=== PATIENT | female | born 1955 | race Caucasian/White ===

== ENCOUNTER 2021-11-14 12:42 | Outpatient (CLI) | payer OTHER, SELFPAY ==
--- OUTSIDE RECORDS SUMMARY | 2021-10-19 08:37 | XMS_ITS | Continuity of Care Document ---
:1955 Author Care Team Providers Name Role Phone MD Laxmi A Attending Physician MD Laxmi A Primary Care Physician Health Concerns Concerns Review problems and other documentation throughout for health concerns. Allergies, Adverse Reactions, Alerts Allergen Type Severity Reaction Last Updated Verified Status NSAIDs Allergy Moderate had a gastric October 11 Activ e bypass 2021 Social History Smoking Status Status Start Date End Date Date of Observat ion Never smoked tobacco October 15, 2021 9:46am (finding) Additional Data Assigned Sex Female Problems Active Problems Medical Problem Onset Date Status Fibromyalgia September 05, 2009 Active Major depression September 05, 2009 Active Morbid obesity September 05, 2009 Resolved Gastroesophageal reflux September 05, 2009 Active Osteoarthritis September 05, 2009 Active 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, 2009 Resolved Binge eating September 05, 2009 Resolved Restless legs syndrome September 05, 2009 Active Ulnar neuropathy April 09, 2010 Resolved Bladder dysfunction September 26, 2010 Active Actinic keratosis Active Sessile colonic polyp Active Dystonia Active Skin lesion Active Anal fissure Active Ankle fracture, left Active Encounter for Medicare annual Active wellness exam Anxiety Active Medial meniscus tear September 05, 2009 Resolved Trigger thumb September 05, 2009 Resolved History of foot surgery September 05, 2009 Resolved Previous section September 05, 2009 Resolved History of hysterectomy September 05, 2009 Resolved History of cholecystectomy September 05, 2009 Resolved H/O gastric bypass November 21, 2009 Active History of colonoscopy Active Medications Medication Status Dose Units Route Directions Qty Days Start End Ins tructions Date Date Buspirone Active 15 MG PO Twice A Day 180 Februar Hcl y 2021 4:24pm Calcium Active 1000 MG PO Daily Carbonate Carbamazepin Active 200 MG PO As Directed June take 1.5 tabs e 7th, two times a 2021 day 11:42am Cholecalcife Active 1000 UNIT OR Daily rol (Vitamin D3) 1,000 Unit TAB Cyanocobalam Active 1000 MCG IM Every 30 28 June in (Vitamin Days 15, B 12) 1 000 2021 INJ 10:29am Docusate Active 100 MG PO Twice A Day Sodium Doxycycline Active 200 MG PO Once 2 September Monohydrate 2021 9:54am Duloxetine Active 120 MG PO Daily 180 Novembe Hcl r , (Cymbalta) 2020 60 Mg CAP 10:59am Ferrous Active 325 MG PO Daily 90 Februar Sulfate y , (Iron 2019 (Ferrous 9:17am Sulfate)) 325 Mg TAB Lidocaine Active 4 % TOP Twice A Day Patch as needed Lorazepam Active 0.5 MG PO Three Times 30 Decembe (Ativan) 0.5 A Day as r , Mg TAB needed 2020 8:48am Multiple Active 1 EA PO Daily Vitamin (Multi-Vitam in) TAB Pramipexole Active 0.5 MG PO Bedtime January Dihydrochlor , radha 2020 10:30am Trazodone Active 1-2 TAB PO Bedtime as 180 Februar Hcl needed y 2021 12:39pm 0.4% Disconti 1 JANET ND Twice A Day July Appl y pea Intra-Anal nued , ramona sized mariangel unt Oint 2019 07, intra-anally 3:47pm 2019 twice daily. 3:38pm Acetaminophe Disconti 1 - 2 TAB PO Daily n/Codeine nued er er Phosphate , (Acetaminoph 2008 2008 en/Codeine#3 3:13pm 1:25pm ) 30 Mg/300 Mg TAB Acetaminophe Disconti 1 - 2 TAB PO Daily November n/Codeine nued , ramona Phosphate 2008, (Acetaminoph 10:56am 2008 en/Codeine#3 3:13pm ) 30 Mg/300 Mg TAB Acetaminophe Disconti 1 - 2 TAB PO Daily October n/Codeine nued , , Phosphate 2008 2008 (Acetaminoph 11:51am 10:56a en/Codeine#3 m ) 30 Mg/300 Mg TAB Acetaminophe Disconti 1 - 2 TAB PO Daily 45 September n/Codeine nued , 13, Phosphate 2008 2008 (Acetaminoph 3:34pm 11:51a en/Codeine#3 m ) 30 Mg/300 Mg TAB Acetaminophe Disconti 1 - 2 TAB PO Daily 10 October n/Codeine nued , Phosphate 2008 (Acetaminoph 3:34pm en/Codeine#3 ) 30 Mg/300 Mg TAB Albuterol Disconti 2 PUFF INH Four Times 26 September Decemb (Ventolin nued Daily , er Hfa) 90 Mcg 2010, DOSE 2:45pm 2010 8:54am Amitriptylin Disconti 100 MG PO Daily 80 Sept Novemb e Hcl nued er er 2008 11:54am 1:25pm Amitriptylin Disconti 50 MG PO Bedtime Sept e Hcl nued ramona 2008 11:54a m Amoxicillin Disconti 875 MG PO Twice A Day November mb nued , er 2017, 10:38am 2017 9:14am Amoxicillin Disconti 1 TABLET PO Twice Daily 15 August Dece mb & Pot nued For 10 Days , er Clavulanate 2014, (Augmentin) 10:08am 2014 875 Mg/125 8:02am Mg TAB Azithromycin Disconti 250 MG PO As Directed 01 December Sep tem 2 TABS ON DAY (Zithromax nued , ramona ONE THEN 1 Z-Lanie) 250 2016, TAB DAILY Mg TAB 9:59am 2016 DAYS 2-5 12:55p m Azithromycin Disconti 0 PO Daily September TAKE 2 TABLETS TOGETHER TODAY, THEN 1 TABLET ONCE DAILY FOR 4 MORE (Zithromax) nued , , DAYS 250 Mg TAB 2010 2010 10:48am 2:24pm B-Complex Disconti 1 EA PO Decemb Vitamins (B nued er Complex) CAP 2014 8:02am Biotin Disconti 5000 MCG PO Daily Decemb nued er 2013 9:04am Buspirone Disconti 15 MG PO Twice A Day 60 Februar Febru a Hcl nued y , ry 2021, 10:42am 2021 4:24pm Buspirone Disconti 7.5 MG PO Twice A Day 60 Novembe Febru a Hcl nued r , ry 2020 17, 10:59am 2021 4:03pm Buspirone Disconti 15 MG PO Twice A Day 60 Decembe Febru a Hcl nued r , ry 2020 14, 8:47am 2021 10:42a m Calcium/Blanca Disconti 1 EA PO Daily October D nued 2015 2:50pm Carbamazepin Disconti 200 MG PO As Directed [facility] take 1.5 tabs e nued er 9, 7th, two times a 2020 2021 day 1:36pm 11:42a m Carbamazepin Disconti 300 MG PO Twice A Day June em take 1.5 tabs e nued 11th, ramona two times a 2020 12, day 12:44pm 2020 1:36pm Carbamazepin Disconti 300 MG PO Twice A Day June h final dose e nued 9th, 11th, 300 mg by 2020 2020 mouth twice 1:15pm 12:44p daily m Carbamazepin Disconti 300 MG PO Twice A Day April Ma [facility] final dose e nued 4th, 9th, 300 mg by 2020 2020 mouth twice 6:43pm 1:15pm daily Carbamazepin Disconti 300 MG PO Twice A Day October ar final dose e nued 13th, y 4th, 300 mg by 2019 2020 mouth twice 2:02pm 6:43pm daily Carbamazepin Disconti 300 MG PO Twice A Day June final dose e nued 16th, 13th, 300 mg by 2019 2019 mouth twice 2:37pm 2:02pm daily Carbamazepin Disconti 300 MG PO Twice A Day April Ma [facility] final dose e nued 27th, 16th, 300 mg by 2019 2019 mouth twice 11:23am 2:37pm daily Carbamazepin Disconti 300 MG PO Twice A Day November uar increase by 100 mg a day for 1 week, final dose 300 mg po e nued 6th, y bid 2018, 4:57pm 2019 11:23a m Carbamazepin Disconti 300 MG PO Twice A Day November ust increase by 100 mg a day for 1 week, final dose 300 mg po e nued , , bid 2018 2018 3:24pm 4:57pm Carbamazepin Disconti 300 MG PO Twice A Day 180 November ust increase by 100 mg a day for 1 week, final dose 300 mg po e nued , , bid 2018 2018 3:07pm 3:24pm Carbamazepin Disconti 200 MG PO Twice A Day [address] e nued 2018 9:31am 3:07pm Carbamazepin Disconti 200 MG PO Twice A Day 120 September e nued 2017 11:35am 9:31am Carbamazepin Disconti 200 MG PO Twice A Day 60 September e nued 2017 11:35a m Carisoprodol Disconti 350 MG PO Three Times September (Soma) 350 nued A Day , TAB 2008 9:29am Cholecalcife Disconti 1000 UNIT PO Twice A Day 24 November rol (Vitamin nued , D) 2015 Unit TAB 2:50pm Cyanocobalam Disconti 1000 MCG IM Every 30 3 June in (Vitamin nued Days r 4th, 15th, B 12) 2020 INJ 2:45pm 10:29a m Cyanocobalam Disconti 1000 MCG IM Every 30 3 Februar Novem b in (Vitamin nued Days y , er B 12) 2020 4th, INJ 4:01pm 2020 2:45pm Cyanocobalam Disconti 1000 MCG IM Every 30 3 Februar Febru a in (Vitamin nued Days y , ry B 12) 2019 8th, INJ 9:17am 2020 4:01pm Cyanocobalam Disconti 1000 MCG IM Every 30 3 August Februa in (Vitamin nued Days 9, ry B 12) 2018, INJ 2:52pm 2019 9:17am Cyanocobalam Disconti 1000 MCG IM Every 30 3 September in (Vitamin nued Days 25th, 9th, B 12) 2017 INJ 11:35am 2:52pm Cyanocobalam Disconti 1000 MCG IM Every 30 June in (Vitamin nued Days 26, 25th, B 12) 2017 INJ 4:10pm 11:35a m Cyanocobalam Disconti 1000 MCG IM Every 30 12 Decembjune in (Vitamin nued Days r , , B 12) 1 2015 INJ 10:24am 4:10pm Cyanocobalam Disconti 1000 MCG IM Once 30 April Dece in (Vitamin nued 16, er B-12) 1,000 2012, Mcg INJ 10:20am 2015 10:24a m Cyanocobalam Disconti 1000 MCG IM Once April in (Vitamin nued 16, , B-12) 1,000 2012 2013 Mcg INJ 9:28am 9:56am Cyclobenzapr Disconti 10 MG PO Bedtime as Nov ust ine Hcl nued needed r 2015 10:24am 9:47am Cyclobenzapr Disconti 10 MG PO Bedtime as Decem b ine Hcl nued needed er 2015 10:24a m Cyclobenzapr Disconti 5 MG PO Three Times July ine Hcl nued A Day as , needed 2013 2013 10:12am 9:55am Cyclobenzapr Disconti 5 MG PO Three Times 25 August Apri l ine Hcl nued A Day as , needed 2013 2013 10:36am 10:12a m Diazepam Disconti 2 MG PO Once November take t wo tablets, 20-30 minutes prior to procedure. YOU MUST HAVE (Valium) 2 nued , [employer] AF TER TAKING THIS MEDICATION. Mg TAB 2008 2008 4:58pm 8:53am Diltiazem Disconti 2 % TOP Three Times June nued A Day as , , needed 2021 2021 5:20pm 12:13a m Diltiazem Disconti 2 % TOP Three Times Julyem Gel nued A Day 2019, 10:29am 2019 9:24am Diltiazem Disconti 60 GRAMS RE Three Times Septjuly Ointment nued A Day er , 2019 9:24am 3:14pm Diphtheria/T Disconti 0.5 ML IM Once August etanus/Acell nued , Pertussis 2009 2009 (Adacel) 0.5 10:54am 10:58a Ml INJ m Docusate Disconti 100 MG PO Daily October nued , (Colace) 100 2010 Mg TAB 10:28a m Doxepin Hcl Disconti 20 MG PO Bedtime November nu2008 8:21am Duloxetine Disconti 120 MG PO Daily 60 Novembe Novemb Hcl nued r 8th, er (Cymbalta) 2020 12th, 60 Mg CAP 11:11am 2020 10:59a m Duloxetine Disconti 120 MG PO Daily 180 Februar Novemb Hcl nued y , er (Cymbalta) 2020 8th, 60 Mg CAP 4:01pm 2020 11:11a m Duloxetine Disconti 120 MG PO Daily 180 Februar Februa Hcl nued y , ry (Cymbalta) 2019 8th, 60 Mg CAP 9:17am 2020 4:01pm Duloxetine Disconti 120 MG PO Daily 180 August Februa Hcl nued , ry (Cymbalta) 2018, 60 Mg CAP 2:52pm 2019 9:17am Duloxetine Disconti 120 MG PO Daily 180 September Hcl nued , , (Cymbalta) 2017 2018 60 Mg CAP 11:35am 2:52pm Duloxetine Disconti 120 MG PO Daily 180 June Hcl nued , , (Cymbalta) 2017 2017 60 Mg CAP 1:43pm 11:35a m Duloxetine Disconti 120 MG PO Daily 180 Decembe June Hcl nued r , (Cymbalta) 2015 2017 60 Mg CAP 10:24am 1:43pm Duloxetine Disconti 120 MG PO Daily 180 Decembe Decemb Hcl nued r , er (Cymbalta) 2015, 60 Mg CAP 1:43pm 2015 10:24a m Duloxetine Disconti 120 MG PO Daily 180 Decembe Decemb Hcl nued r 14, er (Cymbalta) 2014 09, 60 Mg CAP 8:37am 2015 1:43pm Duloxetine Disconti 120 MG PO Daily 180 April Decemb Hcl nued , er (Cymbalta) 2014 14, 60 Mg CAP 9:42am 2014 8:37am Duloxetine Disconti 120 MG PO Daily 180 Januaryuar Hcl nued , y (Cymbalta) 2013 28, 60 Mg CAP 1:23pm 2014 9:42am Duloxetine Disconti 120 MG PO Daily 180 April Octobe Hcl nued , r (Cymbalta) 2013, 60 Mg CAP 4:12pm 2013 1:23pm Duloxetine Disconti 120 MG PO Daily 180 mbe Apruar Hcl nued r , y (Cymbalta) 2012, 60 Mg CAP 10:19am 2013 4:12pm Duloxetine Disconti 120 MG PO Daily 60 January Decemb Hcl nued 16, er (Cymbalta) 2012 3rd, 60 Mg CAP 4:55pm 2012 10:19a m Duloxetine Disconti 120 MG PO Daily 180 Aprilobe Hcl nued , r (Cymbalta) 2012 16, 60 Mg CAP 8:33am 2012 4:55pm Duloxetine Disconti 120 MG PO Daily 180 Januaryuar Hcl nued , y (Cymbalta) 2012 01, 60 Mg CAP 6:45pm 2012 8:33am Duloxetine Disconti 120 MG PO Daily Augustobe Hcl nued , r (Cymbalta) 2011, 60 Mg CAP 3:05pm 2011 6:45pm Duloxetine Disconti 120 MG PO Daily July Hcl nued 16, , (Cymbalta) 2011 2011 60 Mg CAP 6:37pm 3:05pm Duloxetine Disconti 120 MG PO Daily 60 June Hcl nued , , (Cymbalta) 2010 2011 60 Mg CAP 11:30am 6:37pm Duloxetine Disconti 120 MG PO Daily 90 June Hcl nued r , , (Cymbalta) 2008 2010 60 Mg CAP 11:39am 11:30a m Duloxetine Disconti 120 MG PO Daily 30 Novemb Hcl nued r 17, er (Cymbalta) 2008 30, 60 Mg CAP 9:39am 2008 11:39a m Duloxetine Disconti 60 MG PO Daily 30 Novemb Hcl nued er er (Cymbalta) , , 60 Mg CAP 2008 2008 11:54am 9:39am Duloxetine Disconti 60 MG PO Daily October Hcl nued , (Cymbalta) 2008, 60 Mg CAP 11:51am 2008 11:54a m Duloxetine Disconti 30 MG PO Daily September Hcl nued , , (Cymbalta) 2008 2008 30 Mg CAP 10:09am 10:23a m Esomeprazole Disconti 40 MG PO Daily July (Nexium) 40 nued r , , Mg CAP 2008 2009 11:39am 1:55pm Esomeprazole Disconti 40 MG PO Daily (Nexium) 40 nued er Mg CAP 2008 11:39a m Ferrous Disconti 325 MG PO Daily Augustua Sulfate nued (Iron 2018, (Ferrous 2:52pm 2020 Sulfate)) 9:17am 325 Mg TAB Ferrous Disconti 325 MG PO Daily July Sulfate nued , , (Iron 2017 2018 (Ferrous 2:39pm 2:52pm Sulfate)) 325 Mg TAB Ferrous Disconti 325 MG PO Daily July Sulfate nued , (Iron 2017 (Ferrous 2:39pm Sulfate)) 325 Mg TAB Fish Oil Disconti 1000 MG PO Daily October nued 2009 10:28a m Fluconazole Disconti 150 MG PO Once August REPEAT IN nued r , , 3 DAYS 2008 2009 1:57pm 10:07a m Fluoxetine Disconti 1 CAPSULE PO Daily October once daily. Hcl nued 2008 10:23a m Fluoxetine Disconti 60 MG PO Daily September Hcl nued 2008 2:36pm Fluticasone Disconti 2 SPRAY EACH Daily November aft er 1 month Propionate nued NOSTR , er august decre ase (Fluticasone 2011, to 1 sp ray Propionate 11:47am 2011 daily (Nasal)) 50 9:16am Mcg/1 [place] INH Gabapentin Disconti 600 MG PO Three Times Novemb nued A Day er 2008 1:25pm Guaifenesin/ Disconti 1-2 TSP PO Every 4 July Decemb P RN FOR COUGH Codeine nued Hours as , er Phosphate needed 2014, (Guaifenesin 10:08am 2015 -Codeine) 8:02am 100 Mg/10 Mg/5 Ml SOLN Guar Gum Disconti 1 EA PO Daily b (Benefiber) nued er POW 2009 10:12a m Hydrochlorot Disconti 50 MG PO Daily Novemoctober hiazide nued r , 2008 11:39am 10:28a m Hydrochlorot Disconti 50 MG PO Daily hiazide nued er 2008 11:39a m Hydrocortiso Disconti 2.5 % ND Twice A Day September em ne (Rectal) nued 4th, ramona (Proctocare- 2020 4th, Hc) 2.5 % 11:31am 2019 CRE 3:38pm Influenza Disconti 0.5 ML IM Once Januaryobe Virus Vacc nued 5th, r 5th, Triv Types 2009 2009 A&B (Fluarix 4:13pm 4:13pm ) 0.5 Ml INJ Influenza Disconti 0.5 ML IM Once Januaryobe Virus Vacc nued 5th, r 5th, Triv Types 2008 2008 A&B 3:02pm 3:06pm (Fluarix) 0.5 Ml INJ Influenza Disconti 0.5 ML IM Once 1 Novem Novemb Virus nued r , er Vaccine 2017, (Fluzone 9:38am 2017 Quadrivalent 9:43am (3 Yrs And Older)2017-04 9) 1 Inj INJ Influenza Disconti 0.5 ML IM Once 1 Novem Novemb Virus nued r , er Vaccine 2010, (Fluzone Pf 11:24am 2010 [id number] 11:25a (0.5 Ml)) m 0.5 Ml INJ Influenza Disconti 0.5 ML IM Once 1 Decem Virus nued er ramona Vaccine , , Split 2016 2016 (Fluzone 12:57pm 1:22pm Quadrivalent 2016 0.5 Ml) 1 Inj INJ Influenza Disconti 0.5 ML IM Once 1 Decembe Decemb Virus nued r , er Vaccine 2015, Split 10:24am 2015 (Fluzone 2:38pm Quadrivalent (3 Yrs And Older)2015- 7) 1 Inj INJ Influenza Disconti 0.5 ML IM Once 1 Decembe Decemb Virus nued r 14th, er Vaccine 2014 15, Split 8:29am 2014 (Fluzone 10:13a Quadrivalent m (3 Yrs And Older)2014- 6) 1 Inj INJ Influenza Disconti 0.5 ML IM Once 1 [facility] Virus nued r 3rd, er Vaccine 2012 06, Split 10:19am 2012 (Fluzone (3 10:35a Years And m Older) [id number]) 1 Ml INJ Influenza Disconti 0.5 ML IM Once 1 b Virus nued r 27, er Vaccine 2011, Split 10:05am 2011 (Fluzone Pf 10:23a [id number] m (0.5 Ml)) 0.5 Ml INJ Influenza Disconti 0.5 ML IM Once Januaryobe Virus nued , r Vaccine 2013, Types 9:57am 2013 (Fluvirin 10:01a 2013- (4 m Yrs And Up, Pf-Syringe)) 1 Inj INJ Lidocaine Disconti 1 EACH TOP Every 24 Novemb JANET LY FOR 12 (Lidoderm) 5 nued Hours er HOURS O F % TDSY , EVERY 24 HOUR 2008 PERIOD 1:25pm Lidocaine Disconti 1 JANET TOP Every 3 October Hcl nued Hours as er , (Lidocaine needed 2019 2020 Jelly) 2 % 9:17am 9:13am GEL Lidocaine Disconti 1 JANET TOP Every 3 5 July Septem Hcl nued Hours as (Lidocaine needed 2019 06, Jelly) 2 % 9:35am 2019 GEL 9:17am Lorazepam Disconti 0.5 MG PO Three Times Decem b (Ativan) 0.5 nued A Day as r , er Mg TAB needed 2020, 11:00am 2020 8:47am Lorazepam Disconti 1 TABLET PO Bedtime b P RN nued er er 2008 11:54am 1:25pm Lorazepam Disconti 1 TABLET PO Bedtime 20 Septem PRN nued ramona 2008 11:54a m Methylpredni Disconti 1 TAB PO As Directed 15 November Dece mb DIRECTED solone nued , er ON PACKAGE (Medrol 2015, Dosepak) 4 3:26pm 2016 Mg LANIE 10:24a m Nitroglyceri Disconti 0.4 % ND Twice A Day 1 July Apri l generic ok n nued , , (Intra-Anal) 2019 2019 (Rectiv) 0.4 9:34am 3:47pm % OIN Ektie-0-Tjig Disconti 500 MG PO Decemb Ethyl Esters nued er (Fish Oil) 14, 500 Mg CAP 2014 8:02am Omeprazole Disconti 20 MG PO Twice A Day 60 July Septem nued 16, ramona 2019 07, 10:53am 2019 3:38pm Omeprazole Disconti 20 MG PO Twice A Day 60 Februar Apri l nued y , 2019 9:46am 10:53a m Omeprazole Disconti 40 MG PO Twice A Day July nued , 2009 2:24pm 10:28a m Oxybutynin Disconti 5 MG PO Twice A Day September Decemb Chloride nued , er (Ditropan) 2010, Mg TAB 9:32am 2010 8:54am Penicillin G Disconti [id number] UNIT IM Once 1 Septem Benzathine nued 0 er 7th, ramona (Bicillin 2016 , L-A) 1:02pm 2015 1,200,000 1:22pm Unit/2 Ml INJ Pneumococcal Disconti 0.5 ML IM Once 1 Septem Polyvalent nued er 4th, ramona Vaccine 2019 07, (Prevnar 13) 3:58pm 2019 0.5 Ml INJ 4:32pm Pneumococcal Disconti 0.5 ML IM Once August Polyvalent nued , , Vaccine 2018 2018 (Pneumovax 2:39pm 3:12pm 23) 25 Mcg/0.5 Ml INJ Polymyxin/Tr Disconti 1 DROP BOTH Every 3-4 Octoberem Use for 7-10 imethoprim nued EYES Hours , days. Sulfate 2016, (Polytrim) 1:13pm 2016 KAMLA 12:55p m Pramipexole Disconti 0.5 MG PO Bedtime 90 Novem Septem (Mirapex) nued r 11, ramona 0.5 Mg TAB 2009 04, 11:09am 2010 3:37pm Pramipexole Disconti 0.5 MG PO Bedtime 90 Februar Octobe Dihydrochlor nued y , r radha 2020, 4:01pm 2020 10:30a m Pramipexole Disconti 0.5 MG PO Bedtime 90 Februar Februa Dihydrochlor nued y , ry radha 2019 11, 9:17am 2020 4:01pm Pramipexole Disconti 0.5 MG PO Bedtime 90 August Februa Dihydrochlor nued , ry radha 2018, 2:52pm 2019 9:17am Pramipexole Disconti 0.5 MG PO Bedtime 90 September Dihydrochlor nued , , radha 2017 2018 11:35am 2:52pm Pramipexole Disconti 0.5 MG PO Bedtime June Dihydrochlor nued , , radha 2017 2017 1:43pm 11:35a m Pramipexole Disconti 0.5 MG PO Bedtime 90 Novembe June Dihydrochlor nued r , , radha 2016 2017 4:41pm 1:43pm Pramipexole Disconti 0.5 MG PO Bedtime 90 Decembe Novemb Dihydrochlor nued r , er radha 2015, 10:24am 2016 4:41pm Pramipexole Disconti 0.5 MG PO Bedtime 90 Novembe Decemb Dihydrochlor nued r , er radha 2015, 1:11pm 2015 10:24a m Pramipexole Disconti 0.5 MG PO Bedtime 90 Decembe Novemb Dihydrochlor nued r 14, er radha 2014 11, 8:37am 2015 1:11pm Pramipexole Disconti 0.5 MG PO Bedtime 90 April Decemb Dihydrochlor nued , er radha 2014, 9:46am 2014 8:37am Pramipexole Disconti 0.5 MG PO Bedtime 90 Angela Januar Dihydrochlor nued , y radha 2013, 9:55am 2014 9:46am Pramipexole Disconti 0.5 MG PO Bedtime 90 Decembe Angela Dihydrochlor nued r 3rd, , radha 2012 2013 10:19am 9:55am Pramipexole Disconti 0.5 MG PO Bedtime 90 April Decemb Dihydrochlor nued 10th, er radha 2012 3rd, 8:33am 2012 10:19a m Pramipexole Disconti 0.5 MG PO Bedtime 90 Decembe Januar Dihydrochlor nued r , y radha 2011 01, 9:27am 2012 8:33am Pramipexole Disconti 0.5 MG PO Bedtime 90 Decemb Dihydrochlor nued er 1st, er radha 2010, 3:55pm 2010 9:27am Prednisone Disconti 40 MG PO Daily 10 July nued 24, , 2013 2013 10:36am 9:55am Prednisone Disconti 20 MG PO Daily 30 September Decemb nued 10th, er 2010, 2:45pm 2010 8:54am Pregabalin Disconti 225 MG PO Twice A Day April Dece mb (Lyrica) 225 nued 28, er Mg CAP 2014, 3:47pm 2014 8:02am Pregabalin Disconti 75-150 MG PO Twice A Day 14 November Decem b taper off (Lyrica) 75 nued 10th, er this ove r 1-2 Mg CAP 2014 14, weeks. 8:39am 2014 8:02am Pregabalin Disconti 225 MG PO Twice A Day 180 October (Lyrica) 225 nued 30, , Mg CAP 2013 2014 9:56am 9:40am Pregabalin Disconti 225 MG PO Twice A Day 180 October (Lyrica) 225 nued r , 30, Mg CAP 2012 2013 10:19am 9:56am Pregabalin Disconti 225 MG PO Twice A Day 60 January Dece mb (Lyrica) 225 nued 16th, er Mg CAP 2012 06, 4:56pm 2012 10:19a m Pregabalin Disconti 225 MG PO Twice A Day 180 April Octo be (Lyrica) 225 nued 10th, r Mg CAP 2012 16, 8:33am 2012 4:56pm Pregabalin Disconti 225 MG PO Twice A Day 180 January ar (Lyrica) 225 nued 24th, y Mg CAP 2012 01, 8:26am 2012 8:33am Pregabalin Disconti 225 MG PO Twice A Day 180 Decembe Octo be (Lyrica) 225 nued r , r Mg CAP 2010, 9:27am 2011 8:24am Pregabalin Disconti 225 MG PO Twice A Day 180 September Decemb (Lyrica) 225 nued 1st, er Mg CAP 2010, 10:51am 2010 9:27am Pregabalin Disconti 225 MG PO Twice A Day 60 August (Lyrica) 225 nued 16th, 1st, Mg CAP 2010 2010 10:31am 10:51a m Pregabalin Disconti 225 MG PO Twice A Day 60 July (Lyrica) 225 nued 14th, 16th, Mg CAP 2010 2010 4:43pm 10:31a m Pregabalin Disconti 225 MG PO Twice A Day 60 July take 1 tab po (Lyrica) 75 nued 14th, 14th, bid Mg CAP 2010 2010 4:28pm 4:43pm Pregabalin Disconti 75 - MG PO Twice A Day 120 June (Lyrica) 75 nued 150 8th, 14th, Mg CAP 2010 2010 10:18am 4:28pm Pregabalin Disconti 150 MG PO Twice A Day 60 October (Lyrica) 150 nued 27, er Mg CAP 2008, 10:23am 2008 1:25pm Pregabalin Disconti 75 MG PO Twice A Day 60 October Increase to (Lyrica) 75 nued , 20th, 150 mg P O BID Mg CAP 2008 2008 after 1 week. 11:51am 8:21am Resveratrol Disconti 160 MG PO October nu2009 10:28a m Rhodiola Disconti 500 MG PO Daily Decemb nued er 2013 9:04am Sennosides-D Disconti 1 TAB PO Daily October ocusate nued , 2015 (Senna) 1 2:50pm Tab TAB Tetanus-Diph Disconti 0.5 ML IM Once 1 Februar Februa theria nued y , ry Toxoids (Td 2019, (Tenivac) 1 9:32am 2020 Ml INJ 9:38am Tobramycin Disconti 1-2 DROP BOTH Four Times 5 [place] Septem Sulfate nued EYES Daily , (Ophth) 2016, (Tobrex) 0.3 9:59am 2016 % KAMLA 12:55p m Tolterodine Disconti 4 MG PO Daily September Tartrate nued , (Detrol La) 2010 2010 4 Mg CAP 10:57am 9:32am Trazodone Disconti 1-2 TAB PO Bedtime as 180 November Februa Hcl nued needed 2020, 6:08pm 2021 12:39p m Trazodone Disconti 2 MG PO Bedtime November Hcl nued 2020 6:08pm Trazodone Disconti 1-2 TAB PO Bedtime as 180 Decembe July Hcl nued needed r , 2019 11:31am 3:14pm Trazodone Disconti 25-50 MG PO Bedtime as 90 Februar Septem Hcl nued needed y 2019, 9:17am 2019 3:38pm Trazodone Disconti 25-50 MG PO Bedtime as 90 November Februa Hcl nued needed ry 2018, 3:23pm 2019 9:17am Trazodone Disconti 25-50 MG PO Bedtime as 30 August Hcl nued needed , 2018 3:00pm 3:23pm Triamcinolon Disconti 0.1 % MT Twice A Day November e Acetonide nued , er (Mouth) 2008, (Kenalog In 9:06am 2008 Orabase) 0.1 1:25pm % PST Vitamin Disconti 500 MG PO Daily October C/Bioflavino nued , ids 2009 (Mary-C) 10:28a 500 Mg TAB m Vitamin K Disconti IM October nued 2015 2:50pm Zostavax Disconti 0.65 ML SUBQ Once nued r , er 2011, 10:05am 2011 10:23a m Immunizations Immunization Event Date Not Given Dose Charger Lot Vac cine Reason Number Number Informatio n Statement (VIS) Deta il COVID-19 Pfizer July 01, PFIZER-BIONTLiventa Bioscience [id number] 2020 COVID-19 Pfizer July 22, 2 PFIZER-BIONTECH [id number] 2020 Herpes Zoster February 26 merck [id number] 2011 Influenza February 262007 Influenza January 30, Sanofi 2008 Influenza January 30, Glaxosmithkline 2009 Influenza March 01 Sanofi Pasteur 2010 Influenza March 02 Sanofi Pasteur 2011 Influenza April 02 Sanofi 2012 Influenza February 01 Novartis 2013 Influenza April 04 Sanofi 2014 Influenza April 05 Sanofi 2015 Influenza January 05 Sanofi 2016 Influenza March 08 SANOFI 2017 Prevnar Adult December 27 WYETH [id number] 2019 Pneumovax Adult September 03 MERCKSHARP [id number] 2018 Tetanus/Dipther September 05 ia 2009 Tetanus/Dipther May 30 GRIFOLS ia 2019 Tdap September 05 sanofipastuer [id number] (adolescent/barney 2009 lt) Relevant Diagnostic Tests and/or Laboratory Data Laboratory Results Test Date/Time Result Interpretation Reference Result Comment Performing Range Site Lyme October 11, Not Specimen source was [facility] Aeromot Disease 2021 Provided not provided. [address] [facility] [employer] DNA 10:06am Please refer to the [facility] [address] (Rapid ARUPLaboratory Test PCR) Directory for Source validated specimen sourceinformation: [email or web address] Interpret resultswith caution. Lyme October 11, Not NOT DETECTED - A [facility] [employer] Disease 2021 Detected negative result does [address] [facility] [employer] DNA 10:06am not rule out [facility] [address] (PCR) thepresence of PCR inhibitors in the patient specimen orassay specific nucleic acid in concentrations below thelevel of detection by the assay.Blood and CSF specimens have poor clinical sensitivity fordetection of Borrelia burgdorferi by PCR.INTERPRETIVE INFORMATION: Borrelia Species DNA Detection by PCRThis test was developed and its performance characteristicsdeter mined by [facility]. It has not been cleared orapproved by the [place] Food and Drug Administration. This test wasperformed in a CLIA certified laboratory and is intended forclinical purposes.Performed By: [facility] [place] [address] [id number] Director: Faiza Lozano MD, MS Vital Signs Vital Reading Result Reference Range Collection Date/ Time Height 63 [in_i] October 11, 2021 9:37am Height 160.02 cm October 11, 2021 9:37am Weight 193 [lb_av] October 11, 2021 9:37am Weight 87.082600 kg October 11, 2021 9:37am Body Temperature 97.3 [degF] October 11, 2021 9:37am Body Temperature 36.28 Taty October 11, 2021 9:37am BP Systolic 140 mm[Hg] October 11, 2021 9:37am BP Diastolic 90 mm[Hg] October 11, 2021 9:37am Heart Rate 67 /min October 11, 2021 9:37am Respiratory rate 16 /min October 11, 2021 9:37am Body surface area 1.90 m2 October 11 9:37am BMI (Body Mass Index) 34.2 kg/m2 October 11, 2021 9:37am Height 0 [in_i] October 11, 2021 10:05am BP Systolic 160 mm[Hg] October 11, 2021 10:05am BP Diastolic 90 mm[Hg] October 11, 2021 10:05am Advance Directives Advance Directive Response Recorded Date/Time Does Pt have Health Care N - Given today April 13, 2015 9:14am Directive? Has patient completed a N - In process. October 15, 2021 9:46am Health Care Directive? Insurance Providers Guarantor Angel Boateng Address [address] [facility] [id number] Contact Info. Home Phone: Payer Policy Id Coverage Id Subscriber's Subscriber Id Effective E xpiration Name Date Date [employer] [id number] Angel Boateng Gold Choice Encounters Encounter Location(s) Arrival/Admit Date Discharge/Depart Date Provider(s) Registered Advance October 11, 2021 [facility] 9:54am Registered [facility] October 11, 2021 [facility] 9:45am Office Visit [facility] October 11, 2021 [facility] 9:45am Recent Diagnosis Onset Date Tick bite Assessments 1. Tick bite? She does have some local inflammation, this is not erythema migrans, will check Lyme DNA to rule out Lyme disease, will cover with just I 200 mg of doxycycline per routine as we await results. Followup other concerns develop Plan of Treatment Instructions from visit on: 10/11/21 Please follow the provider's instructions as discussed during your visit. Future Tests Future scheduled test information is unavailable Pending Tests Pending diagnostic test information is unavailable Future Visits Future appointment information is unavailable Referrals to Other Providers Referral information is unavailable Future Procedures Procedure Name Scheduled Date RITU Bilat Mammo Scrn Future Medications Future medication information is unavailable Patient Instructions Patient instructions are unavailable Goals Ambulatory Goals Reach or maintain optimal well being.
--- NOTE | 2021-11-14 13:00 | CRLHL7_ITS ---
For Patients: As a result of the Cures Act, medical imaging exams and procedure reports are released immediately into your electronic medical record. You may view this report before your referring provider. If you have questions, please contact your health care provider. BILATERAL MAMMOGRAM WITH COMPUTER-AIDED DETECTION AND TOMOSYNTHESIS TECHNIQUE: CC and MLO views were obtained. These mammographic images have been obtained using full-field digital technique. These mammographic images were interpreted with the benefit of computer-aided detection. Breast Tomosynthesis was used in this interpretation. COMPARISON FILM: 10/30/2020, 10/29/2019, 09/14/2018. FINDINGS: There are scattered areas of fibroglandular density IMPRESSION: There is no radiographic evidence for malignancy. ASSESSMENT: BI-RADS Category 1: Negative RECOMMENDATION: Routine screening mammogram in 1 year. A lay language report of this examination will be provided to the patient. Mario Roa M.D. Diagnostic Radiologist [email or web address] CINDY/[email or web address] / be/Dictated by: Mario Roa MD @ 11/15/2021 9:30:00 AM (Electronically Signed)
== END 2021-11-14 12:43 | disposition home or self-care (01) ==
LOC: MAMMO 12:43
PROVIDERS: PCP Family Medicine; Visit Provider Family Medicine
DX: Z12.31 Encounter for screening mammogram for malignant neoplasm of breast (principal)
CPT/HCPCS: 77063; 77067

== ENCOUNTER 2022-05-14 10:10 | Outpatient (CLI) | payer BC, SELFPAY ==
[2022-05-14 13:56] LABS: Albumin* 3.9 g/dL (3.3-5.0)
[2022-05-14 13:57] LABS: Chloride* 106 mmol/L (96-114); Sodium* 140 mmol/L (135-149)
[2022-05-14 13:59] LABS: Aspartate Amino Transferase* 23 U/L (12-35); Bilirubin Total* 0.3 mg/dL (0.1-1.5); Blood Urea Nitrogen* 15 mg/dL (7-30); Carbon Dioxide* 30 mmol/L (20-32); Cholesterol* 235 mg/dL (90-199); Creatinine* 0.5 mg/dL (0.5-1.5); Estimated Glomerular Filt Rate 102 ml/min; Glucose* 89 mg/dL (60-115); Total Protein* 6.5 g/dL (6.0-8.3)
[2022-05-14 14:00] LABS: Alanine Aminotransferase* 23 U/L (4-35); Alkaline Phosphatase* 105 U/L (40-150); Calcium* 8.6 mg/dL (8.4-10.6); Carbamazepine Tegretol* 7.3 ug/mL (4.0-12.0); HDL Cholesterol* 103 mg/dL (>=50); LDL Cholesterol Calculated 117 mg/dL (<100); Triglycerides* 73 mg/dL (40-149)
== END 2022-05-14 10:11 | disposition home or self-care (01) ==
PROVIDERS: PCP Family Medicine; Visit Provider Family Medicine
DX: Z00.00 Encounter for general adult medical examination without abnormal findings (principal); Z01.818 Encounter for other preprocedural examination; G24.9 Dystonia, unspecified; F41.9 Anxiety disorder, unspecified; Z13.6 Encounter for screening for cardiovascular disorders
CPT/HCPCS: 80053; 80061; 80156

== ENCOUNTER 2022-07-01 13:28 | Outpatient (CLI) | payer BC, SELFPAY | END 2022-07-01 13:29 | disposition home or self-care (01) | PROVIDERS: PCP Family Medicine; Visit Provider Family Medicine | DX: Z01.818 Encounter for other preprocedural examination (principal); E66.01 Morbid (severe) obesity due to excess calories | CPT/HCPCS: 80048; 80061; 82607 ==

== ENCOUNTER 2022-07-25 12:53 | Outpatient (CLI) | payer MEDICARE, SELFPAY ==
--- NOTE | 2022-07-25 13:00 | CRLHL7_ITS ---
For Patients: As a result of the Century Cures Act, medical imaging exams and procedure reports are released immediately into your electronic medical record. You may view this report before your referring provider. If you have questions, please contact your health care provider. DXA BONE MINERAL DENSITY STUDY Reason for exam: Screening. Current height (in): 63. Weight (lb): 190. Menopause age: 25. Ethnicity: White. 1. Have you had a previous hip or vertebral fracture? No. 2. Have you had any fractures during your adult life which did not result from significant trauma (e.g., auto accident)? No. 3. Did either of your parents have a hip fracture? No. 4. Do you smoke? No. 5. Have you ever taken Glucocorticoids? No. 6. Do you have rheumatoid arthritis? No. 7. Do you have secondary osteoporosis? No. 8. Do you drink 3 or more alcoholic drinks per day? No. 9. Are you being treated for osteoporosis? No. 10. Have you ever taken any of the following medications: Actonel, Evista, Fosamax, Miacalcin, Reclast, Boniva, Forteo, HRT (i.e., estrogen/hormone therapy), Protelos, Prolia, Vitamin D, Calcium, other ??? please specify. ANSWER: Yes, vitamin D and calcium 11. Do you have any of the following medical conditions: Anorexia or bulimia, asthma or emphysema, end stage renal disease, hyperparathyroidism, any seizure disorders, cancer, inflammatory bowel diseases, hysterectomy, other ??? please specify. ANSWER: Yes, hysterectomy. 12. What was your maximum height (inches)? 64. 13. Do you perform weight bearing exercise regularly? No. 14. Do you regularly consume dairy products? Yes. 15. Do you drink caffeinated beverages? Yes. If female: 16. At what age did your period start? 13. 17. Are you premenopausal? No. 18. How many full-term pregnancies have you had? 2. 19. Have you ever missed your period for more than 6 months in a row (not including or menopause)? No. TECHNIQUE: Bone mineral density study was performed using the [employer]. FINDINGS: The results of the study expressed as bone mineral density (BMD) are as follows: Lumbar spine L1 to L4: BMD: 0.822 g/cm2. T-score: -2.0. Z-score: -0.1 Neck Left: BMD: 0.648 g/cm2. T-score: -1.8. Z-score: -0.1 Right: BMD: 0.664 g/cm2. T-score: -1.7. Z-score: 0.0 Total Left: BMD: 0.776 g/cm2. T-score: -1.4. Z-score: 0.0 Right: BMD: 0.784 g/cm2. T-score: -1.3. Z-score: 0.1 IMPRESSION: Osteopenia. *Comparison exams done prior to 09/2019 were performed on different unit, [employer]. COMPARISON: Compared with scan of 04/18/2021, the bone mineral density has increased 0.9 percent at the spine and increased by 2.3 percent at the hip. FRAX 10-year Fracture Risk Major Osteoporotic Fracture: 10% Hip Fracture: 1.5% Reported Risk Factors: [place] () Neck BMD=0.648, BMI= 33.7 JOE GARZON M.D. Diagnostic/Nuclear Medicine Radiologist [email or web address] ABILION:quan glass/Dictated by: Joe Garzon MD @ 07/25/2022 2:38:00 PM (Electronically Signed)
== END 2022-07-25 12:54 | disposition home or self-care (01) ==
PROVIDERS: PCP Family Medicine; Visit Provider Family Medicine
DX: Z13.820 Encounter for screening for osteoporosis (principal); M85.89 Other specified disorders of bone density and structure, multiple sites
CPT/HCPCS: 77080

== ENCOUNTER 2022-11-04 09:48 | Outpatient (CLI) | payer MEDICARE, SELFPAY | END 2022-11-04 09:49 | disposition home or self-care (01) | PROVIDERS: PCP Family Medicine; Visit Provider Family Medicine | DX: Z00.00 Encounter for general adult medical examination without abnormal findings (principal); G25.81 Restless legs syndrome; E66.01 Morbid (severe) obesity due to excess calories; F41.9 Anxiety disorder, unspecified; Z79.899 Other long term (current) drug therapy; Z13.6 Encounter for screening for cardiovascular disorders | CPT/HCPCS: 80053; 80061 ==

== ENCOUNTER 2023-01-15 11:28 | Outpatient (CLI) | payer MEDICARE, SELFPAY ==
--- NOTE | 2023-01-15 11:30 | CRLHL7_ITS ---
For Patients: As a result of the Century Cures Act, medical imaging exams and procedure reports are released immediately into your electronic medical record. You may view this report before your referring provider. If you have questions, please contact your health care provider. BILATERAL SCREENING MAMMOGRAM WITH COMPUTER-AIDED DETECTION AND TOMOSYNTHESIS TECHNIQUE: CC and MLO views were obtained. These mammographic images have been obtained using full-field digital technique. These mammographic images were interpreted with the benefit of computer-aided detection. Breast Tomosynthesis was used in this interpretation. COMPARISON FILM: 11/14/21, 10/30/20, 10/29/19. FINDINGS: There are scattered areas of fibroglandular density IMPRESSION: There is no radiographic evidence for malignancy. ASSESSMENT: BI-RADS Category 1: Negative RECOMMENDATION: Routine screening mammogram in 1 year. A lay language report of this examination will be provided to the patient. Mario Roa M.D. Diagnostic Radiologist [email or web address] AXEL/Dictated by: Mario Roa MD @ 01/15/2023 12:35:00 PM (Electronically Signed)
== END 2023-01-15 11:29 | disposition home or self-care (01) ==
LOC: MAMMO 11:29
PROVIDERS: PCP Family Medicine; Visit Provider Family Medicine
DX: Z12.31 Encounter for screening mammogram for malignant neoplasm of breast (principal)
CPT/HCPCS: 77063; 77067

== ENCOUNTER 2023-11-07 09:01 | Outpatient (CLI) | payer BC, SELFPAY | END 2023-11-07 09:02 | disposition home or self-care (01) | PROVIDERS: PCP Family Medicine; Referring Provider Family Medicine; Visit Provider Family Medicine | DX: Z00.00 Encounter for general adult medical examination without abnormal findings (principal); E78.00 Pure hypercholesterolemia, unspecified; G25.81 Restless legs syndrome; Z79.899 Other long term (current) drug therapy; Z98.84 Bariatric surgery status | CPT/HCPCS: 80053; 80061; 80156 ==

== ENCOUNTER 2024-09-21 10:10 | Outpatient (CLI) | payer MEDICARE, SELFPAY | END 2024-09-21 10:11 | disposition home or self-care (01) | LOC: LKVREF 10:11 | PROVIDERS: PCP Family Medicine; Visit Provider Emergency Medicine | DX: Z01.818 Encounter for other preprocedural examination (principal) | CPT/HCPCS: 80048 ==

== ENCOUNTER 2024-11-23 10:34 | Outpatient (CLI) | payer MEDICARE, SELFPAY | END 2024-11-23 10:35 | disposition home or self-care (01) | PROVIDERS: PCP Family Medicine; Visit Provider Family Medicine | DX: G24.9 Dystonia, unspecified (principal); G25.81 Restless legs syndrome; M85.80 Other specified disorders of bone density and structure, unspecified site; R59.0 Localized enlarged lymph nodes; R53.83 Other fatigue; Z78.0 Asymptomatic menopausal state; Z79.899 Other long term (current) drug therapy | CPT/HCPCS: 80053; 80061; 80156; 84443 ==

== ENCOUNTER 2024-11-25 14:17 | Outpatient (CLI) | payer MEDICARE, SELFPAY ==
--- NOTE | 2024-11-25 14:40 | CRLHL7_ITS ---
For Patients: As a result of the Century Cures Act, medical imaging exams and procedure reports are released immediately into your electronic medical record. You may view this report before your referring provider. If you have questions, please contact your health care provider. INDICATION: BILATERAL SCREENING MAMMOGRAM, ASYMPTOMATIC 69 Y/O FEMALE COMPARISON: 01/15/2023, 11/14/2021, 10/30/2020 TECHNIQUE: Digital mammogram in CC and MLO projections including computer-aided detection (CAD) and tomosynthesis. BREAST COMPOSITION: There are scattered areas of fibroglandular density. FINDINGS: No suspicious findings. ASSESSMENT: BI-RADS 1 Negative RECOMMENDATION: Annual screening mammogram. A lay language report of this examination will be provided to the patient. Dictated by: Sommer Mcmanus MD @ 11/28/2024 19:22:25 (Electronically Signed)
== END 2024-11-25 14:18 | disposition home or self-care (01) ==
LOC: MAMMO 14:17
PROVIDERS: PCP Family Medicine; Visit Provider Family Medicine
DX: Z12.31 Encounter for screening mammogram for malignant neoplasm of breast (principal)
CPT/HCPCS: 77063; 77067

== ENCOUNTER 2024-12-02 14:24 | Outpatient (CLI) | payer MEDICARE, SELFPAY ==
--- NOTE | 2024-12-02 14:30 | CRLHL7_ITS ---
For Patients: As a result of the Century Cures Act, medical imaging exams and procedure reports are released immediately into your electronic medical record. You may view this report before your referring provider. If you have questions, please contact your health care provider. DXA BONE MINERAL DENSITY STUDY Reason for exam: Osteopenia. Current height (in): 63. Weight (lb): 180. Menopause age: 25. Ethnicity: White. 1. Have you had a previous hip or vertebral fracture? No. 2. Have you had any fractures during your adult life which did not result from significant trauma (e.g., auto accident)? No. 3. Did either of your parents have a hip fracture? No. 4. Do you smoke? No. 5. Have you ever taken Glucocorticoids? Yes. 6. Do you have rheumatoid arthritis? No. 7. Do you have secondary osteoporosis? No. 8. Do you drink 3 or more alcoholic drinks per day? No. 9. Are you being treated for osteoporosis? No. 10. Have you ever taken any of the following medications: Actonel, Evista, Fosamax, Miacalcin, Reclast, Boniva, Forteo, HRT (i.e. estrogen/hormone therapy), Protelos, Prolia, Vitamin D, Calcium, other ??? please specify. ANSWER: Yes, vitamin D and calcium. 11. Do you have any of the following medical conditions: Anorexia or bulimia, asthma or emphysema, end stage renal disease, hyperparathyroidism, any seizure disorders, cancer, inflammatory bowel diseases, hysterectomy, other ??? please specify. ANSWER: Yes, hysterectomy. 12. What was your maximum height (inches)? 65. 13. Do you perform weight bearing exercise regularly? No. 14. Do you regularly consume dairy products? Yes. 15. Do you drink caffeinated beverages? Yes. 16. At what age did your period start? 13. 17. Are you premenopausal? No. 18. How many full-term pregnancies have you had? 2. 19. Have you ever missed your period for more than 6 months in a row (not including or menopause)? No. TECHNIQUE: Bone mineral density study was performed using the [email or web address]. FINDINGS: The results of the study expressed as bone mineral density (BMD) are as follows: Lumbar spine L1 to L4: BMD: 0.857 g/cm2. T-score: -1.7. Z-score: 0.4. Neck Left: BMD: 0.603 g/cm2. T-score: -2.2. Z-score: -0.4. Right: BMD: 0.649 g/cm2. T-score: -1.8. Z-score: 0.0. Total Left: BMD: 0.778 g/cm2. T-score: -1.3. Z-score: 0.2. Right: BMD: 0.791 g/cm2. T-score: -1.2. Z-score: 0.3. IMPRESSION: Osteopenia. *Comparison exams done prior to 09/2019 were performed on different unit, [employer]. COMPARISON: Compared with scan of 07/25/2022, the bone mineral density has increased by 4.2 percent at the spine and increased by 0.6 percent at the hip. Compared with scan of 04/18/2021, the bone mineral density has increased by 0.9 percent at the spine and increased by 2.3 percent at the hip. FRAX 10-year Fracture Risk Major Osteoporotic Fracture: 19 percent Hip Fracture: 4.5 percent Reported Risk Factors: [place] () Neck BMD=0.603, BMI=31.9, glucocorticoids Mario Roa M.D. Diagnostic Radiologist [email or web address] CINDY/quan glass/Dictated by: Mario Roa MD @ 12/03/2024 7:19:00 AM (Electronically Signed)
--- NOTE | 2024-12-02 15:00 | CRLHL7_ITS ---
For Patients: As a result of the Century Cures Act, medical imaging exams and procedure reports are released immediately into your electronic medical record. You may view this report before your referring provider. If you have questions, please contact your health care provider. Indication: Pain/swelling submandibular region, affects swallowing, assess for lymph nodes Technique: Grayscale and color Doppler ultrasound of the submandibular soft tissues bilaterally. Comparison: None Findings: Right submandibular lymph node measures 1.5 x 0.8 x 1.3 cm. Normal central fatty hilum and normal internal vascularity. Similar normal left cervical lymph node in the submandibular space measures 1.5 x 0.9 x 1.2 cm. Impression: Normal bilateral cervical lymph nodes. No suspicious findings. Dictated by Mario Roa MD @ 12/03/2024 7:11:48 AM (Electronically Signed)
== END 2024-12-02 14:25 | disposition home or self-care (01) ==
LOC: RAD 14:25
PROVIDERS: PCP Family Medicine; Visit Provider Family Medicine
DX: M85.80 Other specified disorders of bone density and structure, unspecified site (principal); M85.89 Other specified disorders of bone density and structure, multiple sites; Z78.0 Asymptomatic menopausal state; R59.0 Localized enlarged lymph nodes; G24.9 Dystonia, unspecified; G25.81 Restless legs syndrome; Z79.899 Other long term (current) drug therapy
CPT/HCPCS: 76536; 77080